=== PATIENT | male | born 1940 ===

== ENCOUNTER 2024-07-16 15:44 | Outpatient (CLI) | payer MEDICARE ==
--- NOTE | 2024-07-17 06:24 | RADIOLOGY REPORT ---
PROCEDURE: MRI lumbar spine without contrast. INDICATION: LOW BACK PAIN, UNSPECIFIED COMPARISON: None TECHNIQUE: MRI lumbar spine without intravenous contrast utilizing multiplanar, multisequence techni que. FINDINGS: There is mild L4 compression deformity with 20% vertebral body height loss. There is a linear band of T2 hyperintensity in the L4 mid vertebral body, compatible with a subacute fracture. There is no oss eous retropulsion. Mild chronic compression deformity of L1 and L5. Bone marrow signal is otherwise unremarkable. Multilevel intervertebral disc space narrowing is present in the lumbar spine. The conu s medullaris is normal in signal characteristics and terminates at the T12-L1 level. Paraspinal muscl es are unremarkable. At the T12-L1 level, there is no evidence of central spinal canal or neuroforaminal stenosis. At the L1-L2 level, there is broad-based posterior disc bulge. No significant canal stenosis. There i s mild bilateral neural foraminal stenosis. At the L2-L3 level, there is broad-based posterior disc bulge, ligamentum flavum and facet hypertroph y. There is narrowing of the lateral recesses. Mild canal stenosis. There is moderate bilateral neura l foraminal stenosis. At the L3-L4 level, there is broad-based posterior disc bulge, ligamentum flavum thickening , facet h ypertrophy and posterior epidural fat. There is mild canal stenosis. There is moderate left and mode rate to severe right neural foraminal stenosis. At the L4-L5 level, there is broad-based posterior disc bulge and ligamentum flavum thickening. Ther e is no significant central spinal stenosis. There is severe bilateral neural foraminal stenosis. At the L5-S1 level, there is broad-based posterior disc bulge and posterior central disc protrusion a s well as ligamentum flavum thickening and facet hypertrophy. There is severe left and moderate to s evere right neural foraminal stenosis. 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 IMPRESSION: 1. Subacute fracture of the L4 vertebral body with about 20% vertebral body height loss. No osseous r etropulsion. 2. Multilevel thoracic spondylosis including severe bilateral neural foramina stenosis at L4-L5 and s evere left neural foramina stenosis at L5-S1.
== END 2024-07-16 23:59 | disposition home or self-care (01) ==
LOC: MRI02 15:44
PROVIDERS: ATTEND Physician Assistant Surgical
DX: S32.010A Wedge compression fracture of first lumbar vertebra, initial encounter for closed fracture (principal); M25.552 Pain in left hip; M70.62 Trochanteric bursitis, left hip; M51.17 Intervertebral disc disorders with radiculopathy, lumbosacral region; S32.040A Wedge compression fracture of fourth lumbar vertebra, initial encounter for closed fracture; G96.191 Perineural cyst; M47.814 Spondylosis without myelopathy or radiculopathy, thoracic region; M47.816 Spondylosis without myelopathy or radiculopathy, lumbar region; M54.50 Low back pain, unspecified; S32.050A Wedge compression fracture of fifth lumbar vertebra, initial encounter for closed fracture; X58.XXXA Exposure to other specified factors, initial encounter; Y93.89 Activity, other specified; Y92.89 Other specified places as the place of occurrence of the external cause; Y99.8 Other external cause status; M43.8X6 Other specified deforming dorsopathies, lumbar region; M48.07 Spinal stenosis, lumbosacral region
CPT/HCPCS: 72148